=== PATIENT | male | born 1975 | race Caucasian/White ===

== ENCOUNTER 2016-08-27 02:48 | Emergency (ER) | payer OTHER ==
[~2016-08-27] VITALS: Ht 160 cm; Wt 66.0 kg
[2016-08-27 03:04] VITALS: BP 133/90
== END 2016-08-27 03:33 | disposition left against medical advice (07) ==
LOC: ER 02:48
DX: R07.89 Other chest pain (principal); R06.02 Shortness of breath; Z53.21 Procedure and treatment not carried out due to patient leaving prior to being seen by health care provider
CPT/HCPCS: 93005

== ENCOUNTER 2016-08-29 18:12 | Emergency (ER) | payer OTHER ==
[~2016-08-29] VITALS: Ht 165.1 cm; Wt 66.0 kg
[2016-08-29] MEDS ORDERED: CYCLOBENZAPRINE 10MG TABLET PO ONE (22:15)
[2016-08-30 00:53] VITALS: BP 140/80
== END 2016-08-30 00:54 | disposition home or self-care (01) ==
LOC: ER 19:19
DX: M62.838 Other muscle spasm (principal); M25.511 Pain in right shoulder; R07.81 Pleurodynia; S50.311A Abrasion of right elbow, initial encounter; W05.2XXA Fall from non-moving motorized mobility scooter, initial encounter; Y93.89 Activity, other specified; Y92.89 Other specified places as the place of occurrence of the external cause; Z90.49 Acquired absence of other specified parts of digestive tract
CPT/HCPCS: 71010; 73030; 99284

== ENCOUNTER 2016-11-26 13:45 | Emergency (ER) | payer OTHER ==
[~2016-11-26] VITALS: Ht 165.1 cm; Wt 70.0 kg
[2016-11-26 14:02] VITALS: BP 113/66
== END 2016-11-26 19:00 | disposition left against medical advice (07) ==
LOC: ER 13:45
DX: L02.212 Cutaneous abscess of back [any part, except buttock and flank] (principal); Z53.21 Procedure and treatment not carried out due to patient leaving prior to being seen by health care provider

== ENCOUNTER 2017-03-11 06:38 | Emergency (ER) | payer OTHER ==
[~2017-03-11] VITALS: Ht 160 cm; Wt 64.0 kg
[2017-03-11 11:01] LABS: CLARITY URINE CLOUDY (CLEAR); COLOR URINE YELLOW (YELLOW); GLUCOSE URINE NEGATIVE (NEGATIVE); KETONES URINE NEGATIVE (NEGATIVE); LEUKOCYTE ESTERASE URINE NEGATIVE (NEGATIVE); NITRITE URINE NEGATIVE (NEGATIVE); OCCULT BLOOD URINE NEGATIVE (NEGATIVE); PH URINE 8.5 (4.5-8.0); PROTEIN URINE NEGATIVE (NEGATIVE); SPECIFIC GRAVITY URINE 1.012 (1.005-1.030); UROBILINOGEN URINE 0.2 E.U./dL (0.2-1.0)
[2017-03-11] MEDS ORDERED: IBUPROFEN 600MG TABLET PO ONE (11:15)
[2017-03-11 11:45] VITALS: BP 122/82
== END 2017-03-11 12:18 | disposition home or self-care (01) ==
LOC: ER 07:19
DX: R10.9 Unspecified abdominal pain (principal); J45.909 Unspecified asthma, uncomplicated
CPT/HCPCS: 71010; 81001; 99285; Z7610

== ENCOUNTER 2017-09-15 16:21 | Emergency (ER) | payer OTHER ==
[~2017-09-15] VITALS: Ht 175.3 cm; Wt 60.0 kg
[2017-09-15] MEDS ORDERED: TETANUS, DIPHTHERIA, PERTUSSIS VAC/PF 0.5ML (>7YR OLD) IM ONE (17:15)
[2017-09-15] MEDS ORDERED: LIDOCAINE HCL 1% 20ML VIAL (Pyxis) INJ MC ONE (17:15)
[2017-09-15 22:31] VITALS: BP 138/90
== END 2017-09-16 01:00 | disposition left against medical advice (07) ==
LOC: ER 16:48
DX: L03.113 Cellulitis of right upper limb (principal); S61.551A Open bite of right wrist, initial encounter; I10 Essential (primary) hypertension; F41.9 Anxiety disorder, unspecified; W64.XXXA Exposure to other animate mechanical forces, initial encounter; Y93.9 Activity, unspecified; Y92.9 Unspecified place or not applicable
CPT/HCPCS: 99281; J3490

== ENCOUNTER 2017-09-17 06:40 | Emergency (ER) | payer OTHER ==
[~2017-09-17] VITALS: Ht 165.1 cm; Wt 60.0 kg
[2017-09-17] MEDS ORDERED: TETANUS, DIPHTHERIA, PERTUSSIS VAC/PF 0.5ML (>7YR OLD) IM ONE (14:00)
[2017-09-17] MEDS ORDERED: PIPERACILLIN/TAZ 3.375G PREMIX 50 ML IV ONE (14:00)
[2017-09-17] MEDS ORDERED: SODIUM CHLORIDE 0.9% 1000ML BAG (SEPSIS BOLUS) IV ONE (14:00)
[2017-09-17] MEDS ORDERED: KETOROLAC 30MG/ML VIAL IV ONE (14:00)
[2017-09-17] MEDS ORDERED: VANCOMYCIN 1 G PREMIX 200 ML IV SCH (14:00)
[2017-09-17 14:38] LABS: BASOPHILS % 0.5 % (0.0-2.0); EOSINOPHILS % 0.8 % (0.0-5.0); HEMATOCRIT. 38.3 % (42.0-52.0); HEMOGLOBIN. 13.1 g/dL (14.0-18.0); MEAN CORPUSCULAR HEMOGLOBIN 29.6 pg (28.0-32.0); MEAN CORPUSCULAR VOLUME 86.2 fL (80.0-94.0); MEAN PLATELET VOLUME 7.2 fl (7.4-10.4); MONOCYTES % 9.2 % (2.0-8.0); NEUTROPHILS % 75.5 % (40.0-76.0); PLATELET 277 x1000/uL (130-400); RED BLOOD CELL COUNT 4.44 mill/uL (4.7-6.1)
[2017-09-17 14:45] LABS: CHLORIDE 104 mEq/L (98-107)
[2017-09-17 14:47] LABS: PARTIAL THROMBOPLASTIN TIME 30.6 sec (23.4-31.0); PROTHROMBIN TIME 10.9 sec (9.4-11.6)
[2017-09-17 14:57] LABS: *BARBITURATES SCREEN URINE NEGATIVE (NEGATIVE); *BENZODIAZEPINES SCREEN URINE NEGATIVE (NEGATIVE); *COCAINE SCREEN URINE NEGATIVE (NEGATIVE); METHADONE URINE SCREEN NEGATIVE (NEGATIVE)
[2017-09-17 14:58] LABS: *AMPHETAMINES SCREEN URINE NEGATIVE (NEGATIVE); CANNABINOID URINE SCREEN NEGATIVE (NEGATIVE); OPIATES URINE SCREEN NEGATIVE (NEGATIVE); PHENCYCLIDINE URINE SCREEN NEGATIVE (NEGATIVE)
[2017-09-17] MEDS ORDERED: LIDOCAINE HCL 1%/EPI 1:200,000 30 ML VIAL MC ONE (16:45)
[2017-09-17] MEDS ORDERED: HYDROCODONE/ACETAMINOPHEN 5/325MG TABLET PO ONE (17:30)
[2017-09-17] MEDS ORDERED: ONDANSETRON 4MG ODT PO ONE (17:30)
[2017-09-17 19:36] VITALS: BP 114/67
== END 2017-09-17 19:43 | disposition home or self-care (01) ==
LOC: ER 06:40 → CANBEDREQ 19:08 → ER 19:43
DX: L03.113 Cellulitis of right upper limb (principal); R65.10 Systemic inflammatory response syndrome (SIRS) of non-infectious origin without acute organ dysfunction; F41.9 Anxiety disorder, unspecified; Z23 Encounter for immunization
CPT/HCPCS: 10060; 36415; 73110; 76881; 80048; 80305; 85025; 85610; 85730; 87040; 87070; 87077; 87205; 90471; 90715; 96365; 96366; 96367; 99285; J1885; J2543; J3370; J7030; Z7610

== ENCOUNTER 2017-09-20 15:11 | Emergency (ER) | payer OTHER ==
[~2017-09-20] VITALS: Ht 165.1 cm; Wt 66.0 kg
[2017-09-20] MEDS ORDERED: CEPHALEXIN 500MG CAPSULE PO ONE (20:30)
[2017-09-20] MEDS ORDERED: SULFAMETHOXAZOLE/TRIMETHOPRIM 800/160MG TABLET PO ONE (20:30)
[2017-09-20 21:20] VITALS: BP 119/77
== END 2017-09-20 21:23 | disposition home or self-care (01) ==
LOC: ER 15:44
DX: Z48.817 Encounter for surgical aftercare following surgery on the skin and subcutaneous tissue (principal); L03.113 Cellulitis of right upper limb
CPT/HCPCS: 99283; X7700

== ENCOUNTER 2017-12-16 11:43 | Emergency (ER) | payer MEDICAID, OTHER ==
[~2017-12-16] VITALS: Ht 162.6 cm; Wt 54.0 kg
[2017-12-16 11:44] VITALS: BP 127/81
== END 2017-12-16 16:23 | disposition left against medical advice (07) ==
LOC: ER 11:50
DX: M54.5 Low back pain (principal); F41.9 Anxiety disorder, unspecified; Z90.49 Acquired absence of other specified parts of digestive tract; Z53.21 Procedure and treatment not carried out due to patient leaving prior to being seen by health care provider

== ENCOUNTER 2020-08-09 18:51 | Emergency (ER) | payer OTHER ==
[~2020-08-09] VITALS: Ht 167.6 cm; Wt 68.0 kg
[2020-08-09] MEDS ORDERED: ACETAMINOPHEN 325MG TABLET PO ONE (19:15)
[2020-08-09] MEDS ORDERED: KETOROLAC 60MG/2ML VIAL IM ONE (19:30)
[2020-08-09] MEDS ORDERED: KETOROLAC 30MG/ML VIAL IV STA (23:50)
[2020-08-10] MEDS ORDERED: DIAZEPAM 5 MG/ML 2ML CPJ IV ONE
[2020-08-10 01:11] VITALS: BP 115/74
== END 2020-08-10 01:32 | disposition short-term general hospital (02) ==
LOC: ER 18:51
DX: M54.5 Low back pain (principal); F41.9 Anxiety disorder, unspecified; Z90.49 Acquired absence of other specified parts of digestive tract
CPT/HCPCS: 72131; 93005; 96372; 96374; 96375; 99285; J1885; J3360

== ENCOUNTER 2022-09-24 10:41 | Emergency (ER) | payer OTHER ==
[~2022-09-24] VITALS: Ht 165.1 cm; Wt 67.7 kg
[2022-09-24 10:46] VITALS: BP 130/85
[2022-09-24] MEDS ORDERED: NAPR-681 MT (11:49)
[2022-09-24] MEDS ORDERED: CEPH500T MT (11:49)
[2022-09-24] MEDS ORDERED: SULF1TAB48 MT (11:49)
== END 2022-09-24 12:10 | disposition home or self-care (01) ==
LOC: ER 10:41
DX: M25.571 Pain in right ankle and joints of right foot (principal); L03.116 Cellulitis of left lower limb; F41.9 Anxiety disorder, unspecified
CPT/HCPCS: 99283